=== PATIENT | female | born 1965 | race Caucasian/White ===

== ENCOUNTER 2017-08-28 21:23 | Emergency (ER) | payer MEDICAID ==
[2017-08-28] MEDS ORDERED: AZITHROMYCIN 250 MG TAB PO ONE (21:42)
[2017-08-28] MEDS ORDERED: predniSONE 20 MG TAB PO ONE (21:42)
[2017-08-28] MEDS ORDERED: IPRATROPIUM/ALBUTEROL 3 ML DEYVIAL IH ONE (21:42)
[2017-08-28] MEDS ORDERED: ALBUTEROL 3 ML DEYVIAL IH ONE (21:42)
--- NOTE | 2017-08-28 21:48 | EDPHY ---
H & P Time Seen by Provider: 08/28/17 21:33 HPI/ROS: CHIEF COMPLAINT: Cough and shortness of breath HISTORY OF PRESENT ILLNESS: 52-year-old half pack-a-day smoker since age 39 presents with 3 weeks of cough. Started with sore throat and diffuse myalgias, congestion, and cough. Progressed to wheezing and cough productive of green sputum which is severe and worse with exertion. Associated with bilateral posterior chest pain which is only present when she coughs. No hemoptysis and no leg swelling. Continues to smoke but only 3 cigarettes today. REVIEW OF SYSTEMS: Eye: no change in vision ENT: Mild sore throat which is improving Cardiac: no chest pain or syncope Pulmonary: HPI Abdomen: no vomiting, diarrhea, abdominal pain Musculoskeletal: Still has soreness in her right leg after a orthopedic procedure in October of 2016. She had some soreness in her right upper arm today which is worse with moving it or palpation Skin: no rash or urticaria Neuro: no headache Constitutional: Associated fever and chills : no urinary symptoms A comprehensive 10 point review of systems is otherwise negative aside from elements mentioned in the history of present illness. PAST MEDICAL HISTORY: Cole in her right tibia in October of 2016, has had bronchospasm and oral steroids before by her primary care practice in [place] last year. Negative for diabetes or asthma. Negative for coronary disease. Social history: Tobacco smoker about a half pack per day, 3 cigarettes yesterday. No recent trauma or immobilization. General Appearance: Alert and conversant, cooperative. Eyes: No scleral icterus. ENT, Mouth: Normal mucous membranes. No angioedema or trismus. Respiratory: Bilateral wheezing expiratory phase is increased, speaks in full sentences, breath sounds are equal. No crepitus. Cardiovascular: Regular rate and rhythm. Gastrointestinal: Abdomen is soft and non tender. Neurological: Alert, face symmetric, normal motor and sensory in extremities. Skin: Warm and dry, no rashes. No urticaria. Musculoskeletal: No calf tenderness. Patient has some soreness in her right upper arm which she moves her shoulder and some tenderness to direct palpation of her biceps and deltoid. Psychiatric: Not agitated. Emergency Department course/MDM: Patient presents with 3 weeks of cough and green sputum with history of tobacco smoking, which treat empirically with azithromycin. DuoNeb and albuterol neb. She does have an albuterol inhaler given to her by her [place] physician legal administrative assistant last week. Steroids discussed and consented. Likely viral primary Respiratory infection which has progressed bacterial. We discussed not doing chest x-ray since I plan to treat her with antibiotics, patient is in agreement. 2219: Feels better, chest clear, full sentences, no retractions or extra work of breathing. She would like to go home which I think is reasonable. Smoking Status: Heavy smoker Constitutional: Initial Vital Signs Temperature (C) 37.1 C 08/28/17 21:35 Heart Rate 99 08/28/17 21:35 Respiratory Rate 22 H 08/28/17 21:35 Blood Pressure 129/89 H 08/28/17 21:35 O2 Sat (%) 94 08/28/17 21:35 O2 Delivery Mode Room Air Allergies/Adverse Reactions: No Known Allergies Allergy (Unverified 08/28/17 21:24) Home Medications: Medication Instructions Recorded Advil 08/28/17 Azithromycin 250 mg PO DAILY #4 tablet 08/28/17 D-Methorphan/PE/Acetaminophen 08/28/17 [Meg-Hugheston Plus Sinus-Cough] Inhaler 08/28/17 predniSONE [prednisone 20mg (RX)] 60 mg PO DAILY 5 Days tab 08/28/17 Medical Decision Making Differential Diagnosis: Differential diagnosis considered for shortness of breath including but not limited to pulmonary infectious process, COPD, asthma, pulmonary embolus and congestive heart failure. - Data Points Medications Given: Discontinued Medications Albuterol (Proventil Neb) 3 ml IH EDNOW ONE Stop: 08/28/17 21:43 Last Admin: 08/28/17 21:51 Dose: 3 ml Albuterol/Ipratropium (Duoneb) 3 ml IH EDNOW ONE Stop: 08/28/17 21:43 Last Admin: 08/28/17 21:50 Dose: 3 ml Azithromycin (Zithromax) 500 mg PO EDNOW ONE PRN Reason: Protocol Stop: 08/28/17 21:43 Last Admin: 08/28/17 21:50 Dose: 500 mg Prednisone (Prednisone) 60 mg PO EDNOW ONE Stop: 08/28/17 21:43 Last Admin: 08/28/17 21:49 Dose: 60 mg Departure - Departure Disposition: Home, Routine, Self-Care Clinical Impression: Acute bronchitis Qualifiers: Bronchitis organism: unspecified organism Qualified Code(s): J20.9 - Acute bronchitis, unspecified Condition: Good Instructions: Prednisone (By mouth), Azithromycin (By mouth), Acute Bronchitis (ED), Bronchospasm (ED) Additional Instructions: Need to follow-up with your primary care clinic or referral primary care physician here in the next 1-2 weeks to ensure that your getting better. Referrals: Tess Gonzalez MD [Medical Doctor] - As per Instructions [facility], clinic [Other] - As per Instructions Prescriptions: Azithromycin 250 mg PO DAILY #4 tablet predniSONE [prednisone 20mg (RX)] 60 mg PO DAILY 5 Days tab
[2017-08-28 22:10] VITALS: BP 125/78; PULSE 92; RESP 20; TEMP 98.6; O2SAT 96
== END 2017-08-28 22:24 | disposition home or self-care (01) ==
LOC: CED 21:23
DX: J20.9 Acute bronchitis, unspecified (principal); F17.200 Nicotine dependence, unspecified, uncomplicated
CPT/HCPCS: J7512; J7613